=== PATIENT | male | born 1995 | race African-American/Black ===

== ENCOUNTER 2024-04-28 10:54 | Emergency (ER) | payer SELFPAY, OTHER ==
[2024-04-28] MEDS ORDERED: Boostrix 0.5 ML (Tdap) VIAL (>/=7 yrs of age) ONE (11:34)
== END 2024-04-28 12:38 | disposition home or self-care (01) ==
LOC: MADERS 10:54
DX: S01.311A Laceration without foreign body of right ear, initial encounter (principal); V89.2XXA Person injured in unspecified motor-vehicle accident, traffic, initial encounter
CPT/HCPCS: 70450; 90715